=== PATIENT | female | born 2000 | race Caucasian/White ===

== ENCOUNTER 2023-06-28 10:38 | Emergency (ER) | payer MEDICAID ==
[~2023-06-28] VITALS: Ht 152.4 cm; Wt 70.3 kg
[2023-06-28 10:54] VITALS: BP 114/60; PULSE 71; RESP 20; TEMP 98; O2SAT 99
--- NOTE | 2023-06-28 11:40 | NUR ---
CHAPERONED PA DURING PELVIC EXAM. CULTURES OBTAINED AND TO BE SENT TO LAB.
--- NOTE | 2023-06-28 12:01 | NUR ---
LAB CALLED AND STATED THAT THE CURRENTLY DO NOT HAVE ENOUGH URINE FOR ALL TEST THAT ARE ORDERED. PT OOB TO THE RESTROOM TO OBTAIN UA SAMPLE.
[2023-06-28 12:07] LABS: APPEARANCE,URINE CLEAR (CLEAR); BILIRUBIN,URINE NEGATIVE (NEGATIVE); BLOOD, URINE 3+ (NEGATIVE); COLOR,URINE YELLOW (YELLOW); LEUKOCYTE ESTERASE ,URINE TRACE (NEGATIVE); NITRITE, URINE NEGATIVE (NEGATIVE); UGLUCOSE NEGATIVE (NEGATIVE)
[2023-06-28 12:16] LABS: RBC,URINE 0-5 /HPF (0-5)
[2023-06-28] MEDS ORDERED: METR-520 PO (12:56)
[2023-06-28 13:26] VITALS: BP 96/83; PULSE 79; RESP 18; TEMP 98.5; O2SAT 98
--- NOTE | 2023-06-28 13:28 | NUR ---
Patient discharged with v/s stable. Written and verbal after care instructions given and explained. Patient alert, oriented and verbalized understanding of instructions. Ambulatory with steady gait. All questions addressed prior to discharge. ID band removed. Patient advised to follow up with PMD. Rx of FLAGYL given. Patient educated on indication of medication including possible reaction and side effects. Opportunity to ask questions provided and answered. Pt instructed to return to the ER, if conditions worsen.
== END 2023-06-28 13:26 | disposition home or self-care (01) ==
LOC: MED 10:38
DX: N76.0 Acute vaginitis (principal); B96.89 Other specified bacterial agents as the cause of diseases classified elsewhere; Z79.899 Other long term (current) drug therapy
CPT/HCPCS: 81001; 81025; 87086; 87210; 87491; 99284

== ENCOUNTER 2023-07-06 10:23 | Emergency (ER) | payer MEDICAID ==
[~2023-07-06] VITALS: Ht 149.9 cm; Wt 68.3 kg
[~2023-07-06 10:23] MED LIST: METR-520 PO
[2023-07-06 10:42] VITALS: BP 108/62; PULSE 64; RESP 20; TEMP 98.2; O2SAT 98
--- NOTE | 2023-07-06 12:07 | NUR ---
PT CALLED IN AND OUTSIDE OF LOBBY FOR D/C PAPERS. NO ANSWER X2
--- NOTE | 2023-07-06 13:07 | NUR ---
RN CALLED PT FROM FOR D/C PER PROVIDER ORDERS, NO RESPONSE
--- NOTE | 2023-07-06 13:36 | NUR ---
PT LEFT WITHOUT RECEIVING PRINTED ACI
== END 2023-07-06 13:00 | disposition home or self-care (01) ==
LOC: MED 10:23
DX: N76.0 Acute vaginitis (principal); B96.89 Other specified bacterial agents as the cause of diseases classified elsewhere; Z79.899 Other long term (current) drug therapy
CPT/HCPCS: 81002; 81025; 99282